=== PATIENT | female | born 1955 | race Caucasian/White ===

== ENCOUNTER → 2017-09-19 | Outpatient (CLI) | payer BC | LOC: RAD 08:38 | DX: R05 Cough (principal) ==

== ENCOUNTER → 2019-09-25 | Outpatient (CLI) | payer BC ==
[~2019-09-25] VITALS: Ht 167.6 cm; Wt 59.4 kg
[~2019-09-25] MED LIST: BUPROPION XL300 MG PO; ESTRACE1 MG PO; LISINOPRIL PO; LORCET 5-325 M1 EACH PO; MELOXICAM15 MG PO; METFORMIN HCL500 M3 PO; NEURONTIN300 MG PO; NEXIUM40 MG PO; PROGESTERONE PO; SYNTHROID137 MC1 PO; ZANAFLEX4 M1 PO; ZANTAC 150MG T150 M1 PO; [UNRECOGNIZED DRUG - OTHER] PO
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
[2019-09-25 10:06] VITALS: BP 125/78
--- NOTE | 2019-09-25 10:50 | NUR ---
Pain Clinic Assessment: 1. History of Osteoarthritis: Right Lower Extremity History of Rheumatoid Arthritis: Not Applicable 2. Height: 5 ft. 6 in. 167.6 cm. Weight: 131.0 lb. oz. 59.421 kg. Patient's BMI: 21.2 3. Vital Signs: BP: 125/78 Pulse: 83 Resp: 14 Temp: 02 Sat: 100 ECG Mon: 4. Pain Intensity: 5 5. Fall Risk: Dizziness: N Needs help standing or walking: N Fallen in the last 3 months: N Fall risk comments: 6. Patient on Blood Thinner: None 7. History of Hypertension: Y 8. Opioid Therapy greater than 6 weeks: Y Opiate Contract Signed: 9. Risk Assessment Tool Provided: MOD-4 10. Functional Assessment Tool: 11. Recreational Drug Use: Never Drug Type: Tobacco Use: Never Smoker Tobacco Type: Amount or Packs/day: How Many Years: Alcohol Use: No Frequency: Quant:
== END | disposition home or self-care (01) ==
LOC: PAIN 06:45
DX: M54.2 Cervicalgia (principal); M54.12 Radiculopathy, cervical region; G89.29 Other chronic pain; I10 Essential (primary) hypertension; E11.9 Type 2 diabetes mellitus without complications; M19.90 Unspecified osteoarthritis, unspecified site; Z98.890 Other specified postprocedural states; Z79.899 Other long term (current) drug therapy; Z96.651 Presence of right artificial knee joint; Z98.51 Tubal ligation status; Z88.8 Allergy status to other drugs, medicaments and biological substances

== ENCOUNTER → 2020-02-09 | Outpatient (CLI) | payer BC ==
[~2020-02-09] VITALS: Ht 167.6 cm; Wt 59.2 kg
[~2020-02-09] MED LIST changes: +ALPRAZOLAM 0.0.25 MG PO; +FAMOTIDINE 20 M20 MG PO
--- NOTE | ~2020-02-09 | HPC ---
[facility] [place] [address] PAIN MANAGEMENT CONSULTATION Name: MARY MOBLEY Room #: REG SHERWIN Rodriguez.#: [id number] Admission: 02/09/20 Attend Phys: Eriberto Siddiqi MD Discharge: Date of : 57 Report #: [id number] THIS REPORT FOR: cc: Kahlil Hurt,Eriberto Louis MD ~ CC: Kahlil Siddiqi DATE OF SERVICE: 02/09/2020 Followup visit for cervical radiculopathy. The patient returns to pain clinic today after receiving an epidural injection in September that was very helpful for her C6 radiculopathy. Injection performed at C6-C7, right paramedian, was reviewed with her today. We also reviewed her prior MRI, which shows a bulging of the C6-C7 disk as well as a broad-based bulge of the C5-C6 disk. Symptoms have been recurring and she scores her pain intensity today as a 5. It is interfering a bit with her activities of daily living including work. PHYSICAL EXAMINATION: GENERAL: She is pleasant. VITAL SIGNS: Blood pressure 148/90, heart rate 102, respirations 16, O2 sat 100% on room air. She moves independently from sitting to standing position. Her gait is non-affected. She has no spasticity. CHEST: Clear. CARDIAC: Rhythm is regular. MUSCULOSKELETAL: Examination of the neck reveals good range of motion. Mild tenderness. She has good strength in the upper extremities. Mild subjective numbness and tingling in the thumb and index finger of the right hand. Deep tendon reflexes are trace at biceps, triceps, brachioradialis and also trace at knees and ankles. There is a scar over right knee from knee replacement. IMPRESSION: Cervical radiculopathy involving the right C6-C7 distribution. PROCEDURE: Cervical epidural injection under fluoroscopic guidance. After informed consent, she was taken to fluoroscopic suite, placed prone, skin prepped with ChloraPrep. Skin anesthetized over C6-C7. A 20-gauge Tuohy epidural needle advanced first attempt in the epidural space with loss of resistance. There was no blood or CSF aspirated. A 1 mL of Omnipaque was injected and excellent epidurogram was achieved. It was followed by 3 mL of 0.5% lidocaine mixed with 80 mg triamcinolone. She tolerated the procedure well. There were no complications. [address] [address] PAIN MANAGEMENT CONSULTATION Name: OLIVER MOBLEYRA Room #: REG CLI [facility]#: [id number] Admission: 02/09/20 Attend Phys: Eriberto Siddiqi MD Discharge: Date of : 57 Report #: [id number] She does have diabetes. She understands that her blood sugar may be elevated briefly. This can at times affect the more long-term indicator of her A1c. We will try to be conscientious of that if further injections are necessary. Followup visit planned as needed. By: [id number] Eriberto Siddiqi MD /dinesh
[2020-02-09 13:12] VITALS: BP 148/90
--- NOTE | 2020-02-09 13:36 | NUR ---
Pain Clinic Assessment: 1. History of Osteoarthritis: Right Lower Extremity History of Rheumatoid Arthritis: Not Applicable 2. Height: 5 ft. 6 in. 167.6 cm. Weight: 130.6 lb. oz. 59.240 kg. Patient's BMI: 21.1 3. Vital Signs: BP: 148/90 Pulse: 102 Resp: 16 Temp: 02 Sat: 100 ECG Mon: 4. Pain Intensity: 5 5. Fall Risk: Dizziness: Y Needs help standing or walking: N Fallen in the last 3 months: N Fall risk comments: 6. Patient on Blood Thinner: None 7. History of Hypertension: Y 8. Opioid Therapy greater than 6 weeks: Y Opiate Contract Signed: 9. Risk Assessment Tool Provided: MOD-4 10. Functional Assessment Tool: 11. Recreational Drug Use: Never Drug Type: Tobacco Use: Never Smoker Tobacco Type: Amount or Packs/day: How Many Years: Alcohol Use: No Frequency: Quant:
== END | disposition home or self-care (01) ==
LOC: PAIN 07:11
PROVIDERS: ATTEND Anesthesiology Pain Medicine
DX: M54.12 Radiculopathy, cervical region (principal); G89.29 Other chronic pain; E11.9 Type 2 diabetes mellitus without complications; Z98.890 Other specified postprocedural states; Z79.899 Other long term (current) drug therapy